=== PATIENT | female | born 1995 | race Caucasian/White ===

== ENCOUNTER 2017-07-01 08:23 | Emergency (ER) | payer MEDICAID ==
[~2017-07-01] VITALS: Ht 167.6 cm; Wt 68.1 kg
[2017-07-01] MEDS ORDERED: AMPICILLIN/SULBACTAM 3 GM IM ONE (09:00)
[2017-07-01] MEDS ORDERED: DEXAMETHASONE 4 MG/ML, 1ML IVPush ONE (09:00)
[2017-07-01] MEDS ORDERED: SODIUM CHLORIDE 0.9% 1,000ML IVBOLUS ONE (09:00)
[2017-07-01] MEDS ORDERED: DEXAMETHASONE 4 MG/ML, 5ML ONE (09:08)
[2017-07-01] MEDS ORDERED: KETOROLAC 30 MG/1 ML IVPush ONE (09:30)
[2017-07-01] MEDS ORDERED: KETOROLAC 30 MG/1 ML ONE (09:37)
[2017-07-01 10:18] LABS: RAPID INFLUENZA A Negative (Negative); RAPID INFLUENZA B Negative (Negative)
[2017-07-01 11:15] VITALS: BP 118/78
== END 2017-07-01 11:18 | disposition home or self-care (01) ==
LOC: ED 09:10
DX: J02.0 Streptococcal pharyngitis (principal)
CPT/HCPCS: 71045; 87400; 96361; 96372; 96374; 96375; 99285; J0295; J1100; J1885; J7030